=== PATIENT | male | born 1990 | race Caucasian/White ===

== ENCOUNTER 2017-01-20 12:56 | Emergency (ER) | payer OTHER ==
[~2017-01-20] VITALS: Ht 180.3 cm; Wt 158.8 kg
[2017-01-20 14:03] VITALS: BP 135/86
[2017-01-20] MEDS ORDERED: GENTAMICIN 0.3% OPHTH SOL 5 ML BTL OD ONE (14:15)
[2017-01-20] MEDS ORDERED: GENT3OPD OD (14:31)
== END 2017-01-20 14:31 | disposition home or self-care (01) ==
LOC: EDBD 14:15 → M ED 14:15
DX: H10.211 Acute toxic conjunctivitis, right eye (principal)